=== PATIENT | female | born 1960 | race Caucasian/White ===

== ENCOUNTER → 2019-06-01 | Day surgery (SDC) | payer OTHER ==
[~2019-06-01] MED LIST: ASPIR 8181 MG PO; LIPITOR20 MG PO; PLAVIX75 MG PO; TOPROL XL25 M1 PO
== END | disposition home or self-care (01) ==
LOC: ADM 05-22 10:30 → CIR.AMB 10:30
DX: N20.1 Calculus of ureter (principal)